=== PATIENT | male | born 1950 | race Two or more races ===

== ENCOUNTER → 2022-09-19 | Outpatient (CLI) | payer MEDICARE, BC ==
--- NOTE | 2022-09-19 12:55 | XR ---
EXAMINATION TYPE: XR chest 2V DATE OF EXAM: 09/19/2022 COMPARISON: NONE HISTORY: Presurgical testing TECHNIQUE: Frontal and lateral views of the chest are obtained on 3 images. FINDINGS: There is no focal air space opacity, pleural effusion, or pneumothorax seen. The cardiac silhouette size is within normal limits. There is eventration of right hemidiaphragm which is elevate d. Surgical clips are present right upper quadrant. The osseous structures are intact. IMPRESSION: No acute cardiopulmonary process.
[2022-09-19 16:02] LABS: Basophils # (A) 0.09 X 10*3/uL (0.00-0.10); Basophils % (A) 1.4 %; Eosinophils # (A) 0.22 X 10*3/uL (0.04-0.35); Eosinophils % (A) 3.5 %; HCT 45.7 % (39.6-50.0); HGB 14.9 g/dL (13.0-17.0); Immature Grans, Automated 0.3 %; Lymphocytes # (A) 1.53 X 10*3/uL (0.90-5.00); Lymphocytes % (A) 24.6 %; MCH 29.5 pg (27.0-32.0); MCHC 32.6 g/dL (32.0-37.0); MCV 90.5 fL (80.0-97.0); Mean Platelet Volume 9.9 fL (9.5-12.2); Monocytes # (A) 0.47 X 10*3/uL (0.20-1.00); Monocytes % (A) 7.6 %; NRBC Per 100 WBC 0 /100 WBCS (0.0-0.0); Neutrophils # (A) 3.89 X 10*3/uL (1.80-7.70); Neutrophils % (A) 62.6 %; Platelet Count 217 X 10*3/uL (140-440); RBC 5.05 X 10*6/uL (4.40-5.60); WBC 6.22 X 10*3/uL (4.50-10.00)
[2022-09-19 16:17] LABS: African American GFR (CKD) 83.5 (60.0-200.0); Anion Gap 11.5 mmol/L (10.00-18.00); BUN/Creat Ratio 15.1 Ratio (12.00-20.00); Blood Urea Nitrogen 15.4 mg/dL (9.0-27.0); Calcium 9.3 mg/dL (8.7-10.3); Carbon Dioxide 25.1 mmol/L (20.0-27.5); Non-African American GFR(CKD) 72.1 (60.0-200.0); Potassium 4.2 mmol/L (3.5-5.5)
[2022-09-19 18:49] LABS: Appearance,Urine Clear (Clear); Bilirubin,Urine Negative (Negative); Blood,Urine Negative (Negative); Color,Urine Yellow (Yellow); Ketones,Urine Negative (Negative); Nitrite,Urine Negative (Negative); Specific Gravity,Urine 1.021 (1.001-1.030)
[2022-09-19 19:15] LABS: Bacteria,Urine None Seen /HPF (None Seen)
== END | disposition home or self-care (01) ==
LOC: LABPAT 10:27
PROVIDERS: ATTEND Urology
DX: Z01.812 Encounter for preprocedural laboratory examination (principal); I10 Essential (primary) hypertension; D41.02 Neoplasm of uncertain behavior of left kidney; R31.29 Other microscopic hematuria
CPT/HCPCS: 71046; 80048; 81001; 85025; 87086

== ENCOUNTER 2022-09-27 05:39 | Inpatient (IN) | payer MEDICARE, BC ==
[2022-09-24 10:22] VITALS: BMI 29.8
--- NOTE | 2022-09-26 19:57 | P.HPIHPCON ---
History of Present Illness H&P Date: 09/26/22 Chief Complaint: right sided renal mass This is a 72-year-old male with history of a right-sided renal mass, discussed with him the finding and his this is highly concerning for renal cell carcinoma. discussed option of a radical versus a partial nephrectomy. Discussed the risk and the benefit of each procedure in detail. They agreed to proceed with a robotic right sided partial nephrectomy. Discussed the risk which includes but not limited to bleeding, infection, injury to nearby organs which includes but not limited to liver, bowel, lung. Discussed also risk from anesthesia with him. Discussed the risk of heart attack, stroke, blood clots. Also potential of end-stage renal disease and potential need for hemodialysis. Discussed also potential of converting to radical nephrectomy. He understood all the risk and agreed to proceed Consent for Procedure: I have explained the operation/procedure to the patient, including the risks, benefits, side effects, alternative therapies (including not receiving the proposed treatment or service), the likelihood of the patient achieving his/her goals, and potential recuperation problems for the procedure/sedation/analgesia, as well as any blood products, if indicated. I also explained to the patient the risks, benefits and side effects of the alternatives, as well as the risks related to not receiving the proposed procedure, care, treatment, or services. Past Medical History Past Medical History: Chest Pain / Angina, Diabetes Mellitus, GERD/Reflux, Hyperlipidemia, Hypertension, Prostate Disorder Additional Past Medical History / Comment(s): mass rt kidney,enlarged prostate,hiatal hernia,gastritis,diet control diabetes History of Any Multi-Drug Resistant Organisms: None Reported Past Surgical History: Cholecystectomy, Heart Catheterization With Stent, Hernia Repair Additional Past Surgical History / Comment(s): egd,kidney stones,umbilical hernia repair,iris inguinal hernia repairs Past Anesthesia/Blood Transfusion Reactions: No Reported Reaction Additional Past Anesthesia/Blood Transfusion Reaction / Comment(s): no hx blood transfusion Date of Last Stent Placement:: 2013 Smoking Status: Never smoker - Past Family History Mother Family Medical History: No Reported History Brother(s) Family Medical History: Cancer Additional Family Medical History / Comment(s): mets Medications and Allergies Home Medications Medication Instructions Recorded Confirmed Type Aspirin 81 mg PO DAILY 09/24/22 09/24/22 History Enalapril [Vasotec] 20 mg PO BID 09/24/22 09/24/22 History Niacin 500 mg PO DAILY 09/24/22 09/24/22 History Omeprazole 20 mg PO QAM 09/24/22 09/24/22 History Simvastatin 40 mg PO HS 09/24/22 09/24/22 History Tamsulosin HCl [Flomax] 0.4 mg PO QAM 09/24/22 09/24/22 History Ubidecarenone [Co Q-10] 100 mg PO DAILY 09/24/22 09/24/22 History Vit C/E/Zn/Coppr/Lutein/Zeaxan 1 tab PO DAILY 09/24/22 09/24/22 History [Preservision Areds 2 Chew Tab] amLODIPine [Norvasc] 10 mg PO QAM 09/24/22 09/24/22 History Allergies Allergy/AdvReac Type Severity Reaction Status Date / Time adhesive tape Allergy skin Verified 09/24/22 10:23 irritation and reddened gabapentin AdvReac "had Verified 09/24/22 10:01 ambulance called after feeling very sick" Surgical - Exam - General no distress, no pain - Eyes normal ocular movement, no pale - Abdomen Abdomen: soft, non tender Assessment and Plan Assessment: OR for right sided partial nephrectomy
[2022-09-27] MEDS ORDERED: ONDANSETRON 4 MG/2 ML VIAL IVP ONE (05:49)
[2022-09-27] MEDS ORDERED: DEXAMETHASONE SOD PHOSPHATE 4 MG/ML 1 ML VIAL IV ONE (05:49)
[2022-09-27] MEDS: LACTATED RINGERS 1,000 ML IV SCH (06:55)
[2022-09-27 06:58] LABS: Glucose,Whole Blood 137 mg/dL (70-110)
[2022-09-27] MEDS ORDERED: HYDROmorphone 0.5 MG/0.5 ML SYRINGE IVP PRN (07:00)
[2022-09-27] MEDS ORDERED: MIDAZOLAM 2 MG/2 ML VIAL IVP ONE (07:24)
[2022-09-27] MEDS ORDERED: ROPIVACAINE 5 MG/ML 30 ML VIAL ONE (07:36)
[2022-09-27] MEDS ORDERED: HYDROmorphone (PF) 1 MG/ML ONE (07:36)
[2022-09-27] MEDS ORDERED: GLYCOPYRROLATE 0.2 MG/ML 2 ML VIAL ONE (07:36)
[2022-09-27] MEDS ORDERED: fentaNYL (PF) 50 MCG/ML 2 ML AMP ONE (07:36)
[2022-09-27] MEDS ORDERED: MANNITOL 25% 12.5 GM/50 ML VIAL ONE (07:36)
[2022-09-27] MEDS ORDERED: ePHEDrine 50 MG/ML 1 ML VIAL ONE (07:36)
[2022-09-27] MEDS ORDERED: LIDOCAINE 2% INJ 20 MG/ML (2 ML VIAL) ONE (07:36)
[2022-09-27] MEDS ORDERED: ROCURONIUM 10 MG/ML (5 ML VIAL) IV ONE (07:36)
[2022-09-27] MEDS ORDERED: SUCCINYLCHOLINE CHLORIDE 200 MG/10 ML VIAL IV ONE (07:36)
[2022-09-27] MEDS ORDERED: SODIUM CHLORIDE 0.9% (PF) 10 ML VIAL ONE (07:36)
[2022-09-27] MEDS ORDERED: ALBUMIN HUMAN 5% (25gm) 500 ML VIAL IVPB ONE (07:36)
[2022-09-27] MEDS ORDERED: PROPOFOL 10 MG/ML 20 ML VIAL IV ONE (07:36)
[2022-09-27] MEDS ORDERED: ESMOLOL 100 MG/10 ML VIAL ONE (07:36)
[2022-09-27] MEDS ORDERED: WATER FOR INJECTION, STERILE 10 ML VIAL IV ONE ×2 (07:36)
[2022-09-27] MEDS ORDERED: VASOPRESSIN 20 UNIT/ML 1 ML VIAL ONE (07:36)
[2022-09-27] MEDS ORDERED: PHENYLEPHRINE-0.9% NACL SYG 1,000 MCG/10 ML SYRINGE ONE (07:36)
[2022-09-27] MEDS ORDERED: BUPIVACAINE (PF) 0.25% 30 ML VIAL SQ ONE ×2 (07:41)
[2022-09-27] MEDS ORDERED: LACTATED RINGERS 1,000 ML IV ONE ×2 (08:10)
--- NOTE | 2022-09-27 09:12 | P.ANPRN ---
Procedure Note - Anesthesia - Nerve Block Performed Bilateral Erector Spinae Single Time Out Performed: Yes Date of Procedure: 09/27/22 Procedure Start Time: 07:23 Location of Patient: PreOp Indication: Acute Post-Operative Pain, Dx/Pain Location (abodminal pain), Requested by Surgeon Specifically requested for management of pain by : Henry Alegria Sedation Type: Sedate with meaningful contact maintained Preparation: Sterile Prep Position: Prone Catheter: None Needle Types: Pajunk Needle Gauge: 21 Ultrasound used to visualize needle placement: Yes Ultrasound used to observe medication spread: Yes Injectate: 0.5% Ropivacaine (see comment for volume) (20cc + 10 cc saline on each side) Blood Aspirated: No Pain Paresthesia on Injection Noted: No Resistance on Injection: Normal Image Stored and Saved: Yes Events: Uneventful and Well Tolerated
--- NOTE | 2022-09-27 11:21 | P.OP ---
Date of Procedure: 09/27/22 Preoperative Diagnosis: Right-sided renal mass Postoperative Diagnosis: Same Procedure(s) Performed: Robotic-assisted laparoscopic right-sided partial nephrectomy, intraoperative ultrasound Implants: none Anesthesia: UZIEL Surgeon: Henry Alegria Pomologist #1: Namita Smyth Estimated Blood Loss (ml): 150 Pathology: other (right renal mass) Condition: stable Disposition: PACU Indications for Procedure: This is a 72-year-old male with history of a 4.1 cm right-sided renal mass, discussed with him the finding and his this is highly concerning for renal cell carcinoma. discussed option of a radical versus a partial nephrectomy. Discussed the risk and the benefit of each procedure in detail. They agreed to proceed with a robotic right sided partial nephrectomy. Discussed the risk which includes but not limited to bleeding, infection, injury to nearby organs which includes but not limited to liver, bowel, lung. Discussed also risk from anesthesia with him. Discussed the risk of heart attack, stroke, blood clots. Also potential of end-stage renal disease and potential need for hemodialysis. Discussed also potential of converting to radical nephrectomy. He understood all the risk and agreed to proceed Operative Findings: Completely endophytic right-sided renal mass Description of Procedure: The patient was taken to the operating room . General anesthesia was induced. He was prepped and draped in sterile fashion, and was placed in modified flank position . All pressure points were padded. The abdominal insufflation was achieved with the Veress needle. A 8 mm camera port was placed. Robotic trocars and bricklayer's assistant ports were placed under direct vision. a 5 mm liver retractor was placed. . The robot was docked into place. The colon was mobilized medially by incising along the white line of Toldt. Next the duodenum was kocherized. Once the bowel, was mobilized. At this time the gonadal vessel was visualized. Once the gonadal vessel and ureter was visualized , next after the psoas plane was developed the ureter and gonadal vessel was retracted anteriorly off the psoas muscle. Dissection proceeded cranially towards the renal hilum.The renal vessels were dissected. The renal artery and the vein was dissected in preparation for clamping. Patient had 2 renal arteries, and 2 renal veins. Next attention was carried to the tumor, the area around the tumor was defatted, insuring adequate defatting to identify a normal parenchyma. Given the posterior location of the tumor, complete mobilization of the kidney was performed. Next using the intraoperative ultrasound the tumor edges were defined. Manitol was administered. both renal artery were clamped using 2 bulldogs. After clamping the renal artery the tumor was excised with adequate margin, and cautery was used in areas of bleeding. Next the defect was closed in 2 layers using two 30V lock for the inner layer, five 20V lock in interrupted fashion for the outer layer. Sliding clip technique was used. Next the clamps were removed, there was no evidence of bleeding from the defect. Hemostatic agents were applied The kidney tumor was placed in an Endo Catch bag. A LALA drain was placed through the lower robotic trocor incision. The robot was then de-docked and the specimen was then removed by extending the bricklayer's assistant port. Fascia was closed with figure of eight fashion using #1 PDS. Skin was closed with subcuticular sutures and dermabond. The patient was awoken from general anesthesia in stable condition. all counts were correct Please refer to the final pathology report for final diagnosis
--- NOTE | 2022-09-27 12:28 | XR ---
EXAMINATION TYPE: XR chest 1V DATE OF EXAM: 09/27/2022 COMPARISON: 09/19/2022 HISTORY: 72-year-old male reintubation TECHNIQUE: Single frontal view of the chest is obtained. FINDINGS: ET tube satisfactory. Bilateral subcutaneous emphysema is noted. Cholecystectomy clips. Th ere may be some underlying pneumomediastinum as well. Heart upper limits of normal in size. No heydi consolidation or pleural effusion seen. No pneumothorax. IMPRESSION: Satisfactory ET tube. Bilateral subcutaneous emphysema. Probably some underlying pneumomediastinum as well. No pneumothorax. Otherwise, no acute process seen.
[2022-09-27] MEDS: KETOROLAC 15 MG/ML 1 ML VIAL IVP SCH ×3 (15:19→23:34)
[2022-09-27 16:58] LABS: Glucose,Whole Blood 204 mg/dL (70-110)
[2022-09-27] MEDS: HEPARIN SODIUM,PORCINE/PF 5,000 UNIT/0.5 ML SYRINGE SQ SCH ×2 (17:11→23:34)
[2022-09-27 20:11] LABS: Glucose,Whole Blood 220 mg/dL (70-110)
[2022-09-27] MEDS: HYDROcodone/APAP 5-325MG 1 EACH TAB PO PRN (21:24)
[2022-09-27] MEDS: lisinopriL 20 MG TAB PO SCH (21:45)
[2022-09-27] MEDS: D5-0.45% NACL WITH KCL 20MEQ/L 1,000 ML IV SCH (21:47)
[2022-09-27] MEDS: ATORVASTATIN 20 MG TAB PO SCH (21:47)
[2022-09-27] MEDS: HYDROmorphone 1 MG/ML 1 ML SYRINGE IVP PRN (23:35)
[2022-09-28] MEDS: HYDROcodone/APAP 5-325MG 1 EACH TAB PO PRN ×3 (05:46→22:10)
[2022-09-28] MEDS: KETOROLAC 15 MG/ML 1 ML VIAL IVP SCH ×4 (05:47→23:41)
[2022-09-28] MEDS: LACTATED RINGERS 1,000 ML IV SCH (05:52)
[2022-09-28] MEDS: D5-0.45% NACL WITH KCL 20MEQ/L 1,000 ML IV SCH ×3 (05:52→23:37)
[2022-09-28 06:12] LABS: Glucose,Whole Blood 141 mg/dL (70-110)
[2022-09-28] MEDS: amLODIPine 10 MG TAB PO SCH (08:27)
[2022-09-28] MEDS: HEPARIN SODIUM,PORCINE/PF 5,000 UNIT/0.5 ML SYRINGE SQ SCH ×3 (08:27→23:41)
[2022-09-28] MEDS: PANTOPRAZOLE 40 MG TABLET PO SCH (08:27)
[2022-09-28] MEDS: NIACIN TR 500 MG CAPLET PO SCH (08:27)
[2022-09-28] MEDS: TAMSULOSIN 0.4 MG CAP.ER.24H PO SCH (08:27)
[2022-09-28] MEDS: lisinopriL 20 MG TAB PO SCH ×2 (08:27→22:09)
[2022-09-28] MEDS: HYDROmorphone 1 MG/ML 1 ML SYRINGE IVP PRN (10:40)
[2022-09-28 11:01] LABS: Basophils # (A) 0.04 X 10*3/uL (0.00-0.10); Basophils % (A) 0.3 %; Eosinophils # (A) 0.03 X 10*3/uL (0.04-0.35); Eosinophils % (A) 0.2 %; HCT 36.8 % (39.6-50.0); HGB 12.6 g/dL (13.0-17.0); Immature Grans, Automated 0.5 %; Lymphocytes # (A) 0.98 X 10*3/uL (0.90-5.00); Lymphocytes % (A) 6.2 %; MCH 30.5 pg (27.0-32.0); MCHC 34.2 g/dL (32.0-37.0); MCV 89.1 fL (80.0-97.0); Mean Platelet Volume 9.7 fL (9.5-12.2); Monocytes # (A) 1.22 X 10*3/uL (0.20-1.00); Monocytes % (A) 7.8 %; NRBC Per 100 WBC 0 /100 WBCS (0.0-0.0); Neutrophils # (A) 13.38 X 10*3/uL (1.80-7.70); Platelet Count 200 X 10*3/uL (140-440); RBC 4.13 X 10*6/uL (4.40-5.60); RDW 12.7 % (11.5-14.5); WBC 15.73 X 10*3/uL (4.50-10.00)
[2022-09-28 11:10] LABS: Glucose,Whole Blood 163 mg/dL (70-110)
[2022-09-28 11:11] LABS: Anion Gap 12.1 mmol/L (10.00-18.00); BUN/Creat Ratio 10.78 Ratio (12.00-20.00); Calcium 8.2 mg/dL (8.7-10.3); Carbon Dioxide 23.2 mmol/L (20.0-27.5); Non-African American GFR(CKD) 39.7 (60.0-200.0); Potassium 4.2 mmol/L (3.5-5.5)
--- NOTE | 2022-09-28 12:31 | P.PN ---
Progress Note - Text Progress Note Date: 09/28/22 Postoperative day #1 status post right robotic partial nephrectomy. Having incisional pain, and right flank pain. Hemodynamically stable. Abdomen soft, tenderness along the incision. LALA with serosing output -Keep LALA in place -Ambulate -Green will be removed today -potential discharge for tomorrow
[2022-09-28 16:16] LABS: Glucose,Whole Blood 152 mg/dL (70-110)
[2022-09-28 20:58] LABS: Glucose,Whole Blood 179 mg/dL (70-110)
[2022-09-28] MEDS: ATORVASTATIN 20 MG TAB PO SCH (22:09)
[2022-09-29] MEDS: lisinopriL 20 MG TAB PO SCH ×2 (09:31→20:42)
[2022-09-29] MEDS: TAMSULOSIN 0.4 MG CAP.ER.24H PO SCH (09:31)
[2022-09-29] MEDS: PANTOPRAZOLE 40 MG TABLET PO SCH (09:31)
[2022-09-29] MEDS: LACTATED RINGERS 1,000 ML IV SCH (09:31)
[2022-09-29] MEDS: amLODIPine 10 MG TAB PO SCH (09:31)
[2022-09-29] MEDS: NIACIN TR 500 MG CAPLET PO SCH (09:31)
[2022-09-29] MEDS: KETOROLAC 15 MG/ML 1 ML VIAL IVP SCH ×3 (09:31→17:41)
[2022-09-29] MEDS: HEPARIN SODIUM,PORCINE/PF 5,000 UNIT/0.5 ML SYRINGE SQ SCH ×2 (09:31→16:50)
[2022-09-29] MEDS: D5-0.45% NACL WITH KCL 20MEQ/L 1,000 ML IV SCH ×2 (09:32→16:56)
--- NOTE | 2022-09-29 09:42 | P.PN ---
Subjective Progress Note Date: 09/29/22 the patient is in the hospital for a partial right nephrectomy. He is slowly recuperating. He is still having mild to moderate pain. vitall signs are stableJP drainage is serous. I will cut his IV fluids down and ambulate the patient. Hopefully he can be discharged in the next 24 hours. Objective - Vital Signs Vital signs: Vital Signs Temp 98.3 F 09/28/22 20:00 Pulse 90 09/28/22 20:00 Resp 12 09/28/22 20:00 BP 137/80 09/28/22 20:00 Pulse Ox 85 L 09/28/22 22:40 FiO2 100 09/27/22 13:28 Intake & Output 09/28/22 09/29/22 09/29/22 18:59 06:59 18:59 Intake Total 1500 Output Total 670 40 120 Balance 830 -40 -120 Intake: Intake, IV Titration 1500 Amount D5-0.45% NaCl with KCl 1500 20Meq/l 1,000 ml @ 125 mls/hr IV .Q8H [facility] Rx#: [id number] Output: Drainage 120 40 120 Right Abdomen 120 40 120 Urine 550 Other: Voiding Method Indwelling Catheter Indwelling Catheter Indwelling Catheter - Labs CBC & Chem 7: 09/28/22 06:32 09/28/22 06:32 Labs: Abnormal Lab Results - Last 24 Hours (Table) 09/28/22 09/28/22 09/28/22 Range/Units 06:32 06:32 11:09 WBC 15.73 H (4.50-10.00) X 10*3/uL RBC 4.13 L (4.40-5.60) X 10*6/uL Hgb 12.6 L (13.0-17.0) g/dL Hct 36.8 L (39.6-50.0) % Immature Gran # 0.08 H (0.00-0.04) X 10*3/uL Neutrophils # 13.38 H (1.80-7.70) X 10*3/uL Monocytes # 1.22 H (0.20-1.00) X 10*3/uL Eosinophils # 0.03 L (0.04-0.35) X 10*3/uL Creatinine 1.7 H (0.6-1.5) mg/dL Est GFR (CKD-EPI)AfAm 46.0 L (60.0-200.0) Est GFR (CKD-EPI)NonAf 39.7 L (60.0-200.0) BUN/Creatinine Ratio 10.78 L (12.00-20.00) Ratio Glucose 136 H (70-110) mg/dL POC Glucose (mg/dL) 163 H (70-110) mg/dL Calcium 8.2 L (8.7-10.3) mg/dL 09/28/22 09/28/22 Range/Units 16:15 20:57 WBC (4.50-10.00) X 10*3/uL RBC (4.40-5.60) X 10*6/uL Hgb (13.0-17.0) g/dL Hct (39.6-50.0) % Immature Gran # (0.00-0.04) X 10*3/uL Neutrophils # (1.80-7.70) X 10*3/uL Monocytes # (0.20-1.00) X 10*3/uL Eosinophils # (0.04-0.35) X 10*3/uL Creatinine (0.6-1.5) mg/dL Est GFR (CKD-EPI)AfAm (60.0-200.0) Est GFR (CKD-EPI)NonAf (60.0-200.0) BUN/Creatinine Ratio (12.00-20.00) Ratio Glucose (70-110) mg/dL POC Glucose (mg/dL) 152 H 179 H (70-110) mg/dL Calcium (8.7-10.3) mg/dL
[2022-09-29 11:37] LABS: Glucose,Whole Blood 155 mg/dL (70-110)
[2022-09-29 11:37] LABS: Glucose,Whole Blood 174 mg/dL (70-110)
[2022-09-29 16:34] LABS: Glucose,Whole Blood 173 mg/dL (70-110)
[2022-09-29] MEDS: HYDROcodone/APAP 5-325MG 1 EACH TAB PO PRN ×2 (16:50→20:41)
[2022-09-29 19:23] LABS: Glucose,Whole Blood 167 mg/dL (70-110)
[2022-09-29] MEDS: ATORVASTATIN 20 MG TAB PO SCH (20:42)
[2022-09-30] MEDS: KETOROLAC 15 MG/ML 1 ML VIAL IVP SCH ×5 (00:54→23:57)
[2022-09-30] MEDS: HEPARIN SODIUM,PORCINE/PF 5,000 UNIT/0.5 ML SYRINGE SQ SCH ×4 (00:55→23:57)
[2022-09-30] MEDS: HYDROcodone/APAP 5-325MG 1 EACH TAB PO PRN ×4 (00:59→21:36)
[2022-09-30 06:06] LABS: Glucose,Whole Blood 143 mg/dL (70-110)
[2022-09-30] MEDS: PANTOPRAZOLE 40 MG TABLET PO SCH (06:34)
[2022-09-30] MEDS: LACTATED RINGERS 1,000 ML IV SCH (07:37)
[2022-09-30] MEDS: lisinopriL 20 MG TAB PO SCH ×2 (08:58→21:37)
[2022-09-30] MEDS: TAMSULOSIN 0.4 MG CAP.ER.24H PO SCH (08:58)
[2022-09-30] MEDS: NIACIN TR 500 MG CAPLET PO SCH (08:59)
[2022-09-30] MEDS: amLODIPine 10 MG TAB PO SCH (08:59)
--- NOTE | 2022-09-30 09:59 | P.PN ---
Subjective Progress Note Date: 09/30/22 The patient is in the hospital status post right partial nephrectomy done robotically by . Recuperating. His vital signs are stable. He is started to ambulate. His pain is reasonable. He is now urinating. We discussed discharged today and he requests another 24 hours order to feel more confident ambulating eating and pain control. The patient's drain was removed this morning. Anticipate discharge tomorrow. Pathology report is pending. Objective - Vital Signs Vital signs: Vital Signs Temp 98.3 F 09/30/22 07:35 Pulse 92 09/30/22 07:35 Resp 16 09/30/22 07:35 BP 142/81 09/30/22 07:35 Pulse Ox 93 L 09/30/22 07:35 FiO2 100 09/27/22 13:28 Intake & Output 09/29/22 09/30/22 09/30/22 19:59 06:59 18:59 Intake Total Output Total 620 Balance -620 Intake: IV D5-0.45% NaCl with KCl 20Meq/l 1,000 ml @ 70 mls /hr IV .[id number] [facility] Rx#: [id number] Output: Drainage 20 Right Abdomen 20 Urine 600 Uretheral (Green) Other: Voiding Method Urinal # Voids - Labs CBC & Chem 7: 09/28/22 06:32 09/28/22 06:32 Labs: Abnormal Lab Results - Last 24 Hours (Table) 09/29/22 09/29/22 09/29/22 Range/Units 06:11 11:31 16:33 POC Glucose (mg/dL) 174 H 155 H 173 H (70-110) mg/dL 09/29/22 09/30/22 Range/Units 19:21 06:04 POC Glucose (mg/dL) 167 H 143 H (70-110) mg/dL
[2022-09-30 11:55] LABS: Glucose,Whole Blood 141 mg/dL (70-110)
[2022-09-30] MEDS: D5-0.45% NACL WITH KCL 20MEQ/L 1,000 ML IV SCH (12:50)
[2022-09-30 16:36] LABS: Glucose,Whole Blood 149 mg/dL (70-110)
[2022-09-30 19:49] LABS: Glucose,Whole Blood 180 mg/dL (70-110)
[2022-09-30] MEDS: ATORVASTATIN 20 MG TAB PO SCH (21:37)
[2022-10-01] MEDS: D5-0.45% NACL WITH KCL 20MEQ/L 1,000 ML IV SCH ×2 (00:48→06:23)
[2022-10-01 06:08] LABS: Glucose,Whole Blood 146 mg/dL (70-110)
[2022-10-01] MEDS: KETOROLAC 15 MG/ML 1 ML VIAL IVP SCH (06:20)
[2022-10-01] MEDS: HYDROcodone/APAP 5-325MG 1 EACH TAB PO PRN (06:20)
[2022-10-01] MEDS: PANTOPRAZOLE 40 MG TABLET PO SCH (06:21)
[2022-10-01] MEDS: LACTATED RINGERS 1,000 ML IV SCH (08:14)
[2022-10-01 08:20] VITALS: BP 123/73; PULSE 90; TEMP 98
[2022-10-01] MEDS: HEPARIN SODIUM,PORCINE/PF 5,000 UNIT/0.5 ML SYRINGE SQ SCH (09:23)
[2022-10-01] MEDS: lisinopriL 20 MG TAB PO SCH (09:23)
[2022-10-01] MEDS: TAMSULOSIN 0.4 MG CAP.ER.24H PO SCH (09:23)
[2022-10-01] MEDS: NIACIN TR 500 MG CAPLET PO SCH (09:23)
[2022-10-01] MEDS: amLODIPine 10 MG TAB PO SCH (09:23)
--- NOTE | 2022-10-01 09:27 | P.DS ---
Providers Date of admission: 09/28/22 07:08 Expected date of discharge: 10/01/22 Attending physician: Henry Alegria MD Primary care physician: Nikhil Chris - Discharge Diagnosis(es) (1) Status post nephrectomy Status: Acute Hospital Course: The patient is a 72-year-old male with history of a 4.1 cm right-sided renal mass that was highly concerning for renal cell carcinoma. He had a robotic- assisted laparoscopic right-sided partial nephrectomy with intraoperative ultrasound with Dr. Alegria on 09/27/22. Post operatively he experienced mild to moderate incisional and right flank pain. His Green catheter and LALA drain have since been removed. He has been tolerating a diet and ambulating. He is able to void without difficulty. His pain is now well controlled. He states he feels ready to go home. [place] and Toradol have been prescribed as needed for pain. Pathology report is pending. He is to follow up in the office with Dr. Alegria on Saturday10/05/22. Impression and plan of care have been directed as dictated by the signing physician. Verónica Castellanos nurse practitioner acting as scribe for signing physician. Verónica Castellanos [facility] Palliative Care/Urology Spectralink [phone] Email: [email or web address] I personally performed and participated in the history, physical, the decision making, I agree with the assessment and plan of SOLE BLACKER Patient Condition at Discharge: Good Plan - Discharge Summary Discharge Rx Participant: No New Discharge Prescriptions: New Ketorolac [Toradol] 10 mg PO Q6HR PRN #12 tab PRN Reason: Pain HYDROcodone/APAP 5-325MG [[place] 5-325] 1 tab PO Q6HR PRN 3 Days #12 tab PRN Reason: Pain Continue Niacin 500 mg PO DAILY Vit C/E/Zn/Coppr/Lutein/Zeaxan [Preservision Areds 2 Chew Tab] 1 tab PO DAILY Ubidecarenone [Co Q-10] 100 mg PO DAILY Aspirin 81 mg PO DAILY Tamsulosin HCl [Flomax] 0.4 mg PO QAM Simvastatin 40 mg PO HS Omeprazole 20 mg PO QAM amLODIPine [Norvasc] 10 mg PO QAM Enalapril [Vasotec] 20 mg PO BID Discharge Medication List Aspirin 81 mg PO DAILY 09/24/22 [History] Enalapril [Vasotec] 20 mg PO BID 09/24/22 [History] Niacin 500 mg PO DAILY 09/24/22 [History] Omeprazole 20 mg PO QAM 09/24/22 [History] Simvastatin 40 mg PO HS 09/24/22 [History] Tamsulosin HCl [Flomax] 0.4 mg PO QAM 09/24/22 [History] Ubidecarenone [Co Q-10] 100 mg PO DAILY 09/24/22 [History] Vit C/E/Zn/Coppr/Lutein/Zeaxan [Preservision Areds 2 Chew Tab] 1 tab PO DAILY 09/24/22 [History] amLODIPine [Norvasc] 10 mg PO QAM 09/24/22 [History] HYDROcodone/APAP 5-325MG [[place] 5-325] 1 tab PO Q6HR PRN 3 Days #12 tab 10/01/22 [Rx] Ketorolac [Toradol] 10 mg PO Q6HR PRN #12 tab 10/01/22 [Rx] Follow up Appointment(s)/Referral(s): Henry Alegria MD [STAFF PHYSICIAN] - 10/05/22 9:40 am Patient Instructions/Handouts: Hydrocodone/Acetaminophen (By mouth), Ketorolac (By mouth), Nephrectomy (DC) Activity/Diet/Wound Care/Special Instructions: - No heavy lifting, straining, or strenuous activity for 4-6 weeks - Eat small frequent meals - Take pain medication as prescribed when needed - May shower, no tub baths - Follow up with Dr. Alegria in office on Saturday10/05/22 Discharge Disposition: HOME SELF-CARE
[2022-10-01 10:24] VITALS: RESP 16
== END 2022-10-01 11:25 | disposition home or self-care (01) | DRG 658 ==
LOC: OR 05:39 → EDSTATUS 07:30 → 5NMEDONC 11:28 → 4SSUR 11:28 → OR 11:28 → 4SSUR 09-28 07:08 → OR 09-28 07:08 → 4SSUR 10-01 04:59
PROVIDERS: ADMIT Urology; ATTEND Urology
PROC: 0TB04ZZ Excision of Right Kidney, Percutaneous Endoscopic Approach (ICD-10-PCS; principal; 2022-09-28)
PROC: 8E0W4CZ Robotic Assisted Procedure of Trunk Region, Percutaneous Endoscopic Approach (ICD-10-PCS; 2022-09-28)
DX: C64.1 Malignant neoplasm of right kidney, except renal pelvis (principal); E11.9 Type 2 diabetes mellitus without complications; I10 Essential (primary) hypertension; E78.5 Hyperlipidemia, unspecified; Z79.899 Other long term (current) drug therapy; Z79.82 Long term (current) use of aspirin; Z91.048 Other nonmedicinal substance allergy status; Z88.8 Allergy status to other drugs, medicaments and biological substances
CPT/HCPCS: 36600; 64999; 71045; 80048; 85025; 86850; 86900; 86901; 88307; 88341; 88342; 94002

== ENCOUNTER 2022-10-08 18:36 | Emergency (ER) | payer MEDICARE, BC ==
[2022-10-08 18:44] VITALS: TEMP 98.6
[2022-10-08] MEDS ORDERED: SODIUM CHLORIDE 0.9% 500 ML 500 ML IV STA (19:17)
--- NOTE | 2022-10-08 19:39 | ED ---
General Adult HPI - General Chief complaint: Recheck/Abnormal Lab/Rx Stated complaint: kidney problems Time Seen by Provider: 10/08/22 19:13 Source: patient, family Mode of arrival: ambulatory Limitations: no limitations - History of Present Illness Initial comments: Patient is a 72-year-old male who had a mass removed from his right kidney on 09/27 highly concerning for renal cell carcinoma by Dr. Alegria, patient was seen by his PCP today, blood work obtained at today's visit indicated that he had elevated BUN and creatinine as well as potassium, his PCP advised him to report to the ER. Patient states that he has been experiencing some fatigue and "zoning out" over the recent days, which he attributes to recent surgery and recovery. Patient admits to some postoperative pain that has been gradually decreasing, otherwise no new abdominal pain, chest pain, difficulty breathing, headache, vision or hearing changes, neck pain or stiffness, fever, chills, nausea, vomiting, diarrhea, hematochezia, melena. - Related Data Home Medications Medication Instructions Recorded Confirmed Aspirin 81 mg PO DAILY 09/24/22 09/27/22 Enalapril [Vasotec] 20 mg PO BID 09/24/22 09/27/22 Niacin 500 mg PO DAILY 09/24/22 09/27/22 Omeprazole 20 mg PO QAM 09/24/22 09/27/22 Simvastatin 40 mg PO HS 09/24/22 09/27/22 Tamsulosin HCl [Flomax] 0.4 mg PO QAM 09/24/22 09/27/22 Ubidecarenone [Co Q-10] 100 mg PO DAILY 09/24/22 09/27/22 Vit C/E/Zn/Coppr/Lutein/Zeaxan 1 tab PO DAILY 09/24/22 09/27/22 [Preservision Areds 2 Chew Tab] amLODIPine [Norvasc] 10 mg PO QAM 09/24/22 09/27/22 Previous Rx's Medication Instructions Recorded HYDROcodone/APAP 5-325MG [[place] 1 tab PO Q6HR PRN 3 Days #12 tab 10/01/22 5-325] Ketorolac [Toradol] 10 mg PO Q6HR PRN #12 tab 10/01/22 Allergies Allergy/AdvReac Type Severity Reaction Status Date / Time adhesive tape Allergy skin Verified 09/27/22 06:35 irritation and reddened gabapentin AdvReac "had Verified 09/27/22 06:35 ambulance called after feeling very sick" Review of Systems ROS Statement: Those systems with pertinent positive or pertinent negative responses have been documented in the HPI. ROS Other: All systems not noted in ROS Statement are negative. Past Medical History Past Medical History: Cancer, Chest Pain / Angina, Diabetes Mellitus, GERD/Reflux, Hyperlipidemia, Hypertension, Prostate Disorder Additional Past Medical History / Comment(s): mass rt kidney,enlarged prostate,hiatal hernia,gastritis,diet control diabetes History of Any Multi-Drug Resistant Organisms: None Reported Past Surgical History: Cholecystectomy, Heart Catheterization With Stent, Hernia Repair Additional Past Surgical History / Comment(s): egd,kidney stones,umbilical hernia repair,iris inguinal hernia repairs right kidney tumor removed Past Anesthesia/Blood Transfusion Reactions: No Reported Reaction Additional Past Anesthesia/Blood Transfusion Reaction / Comment(s): no hx blood transfusion Date of Last Stent Placement:: 2013 Past Psychological History: No Psychological Hx Reported Smoking Status: Never smoker Past Alcohol Use History: Rare Past Drug Use History: None Reported - Past Family History Mother Family Medical History: No Reported History Brother(s) Family Medical History: Cancer Additional Family Medical History / Comment(s): mets General Exam Limitations: no limitations General appearance: alert, in no apparent distress Head exam: Present: atraumatic, normocephalic, normal inspection Eye exam: Present: normal appearance Neck exam: Present: normal inspection Respiratory exam: Present: normal lung sounds bilaterally. Absent: respiratory distress, wheezes, rales, rhonchi, stridor Cardiovascular Exam: Present: regular rate, normal rhythm, normal heart sounds. Absent: systolic murmur, diastolic murmur, rubs, gallop, clicks Neurological exam: Present: alert, oriented X3, CN II-XII intact Psychiatric exam: Present: normal affect, normal mood Skin exam: Present: warm, dry, intact, normal color. Absent: rash Course Vital Signs 10/08/22 10/08/22 18:40 20:44 Temperature 98.6 F Pulse Rate 104 H 86 Respiratory 20 16 Rate Blood Pressure 128/75 145/55 O2 Sat by Pulse 96 Oximetry EKG Findings - EKG Comments: EKG Findings:: Sinus rhythm rate of 87. ME interval 136. QRS 97. QT 360. QTC 404. Normal axis. Inverted T waves in lead 3. EKG interpreted by me as well as my attending. Medical Decision Making - Medical Decision Making Patient is a 72-year-old male presenting for evaluation of abnormal labs obtained by his PCP today. Patient is status post partial right-sided nephrectomy performed on 09/27. Patient's PCP informed him that he had an elevated potassium and BUN and creatinine in the office today and advised him to report to the ER for evaluation. I presentation patient states that he is still sore from his surgery, otherwise no other complaints. Physical examination is unremarkable. Creatinine 1.98 and BUN 24, this is mildly elevated from his baseline. I spoke with urologist continuous improvement specialist Dr. Patterson he states that this rise in BUN and creatinine is to be expected as patient had a very large portion of the kidney removed. He is comfortable with the patient following up in the office regarding these findings. Patient's lab work showed no signs of hyperkalemia today. UA shows some blood, due to recent surgery, no evidence of infectious process, will be sent for culture. Patient was educated on these findings and instructed to follow-up with his urologist. Follow-up with PCP. Report back to ER with any new or worsening symptoms. Discussed return parameters and answered all questions. Patient conveyed verbal understanding and agreed to the plan. I discussed this case in detail with my attending Dr. Parra. - Lab Data Result diagrams: 10/08/22 19:40 10/08/22 19:40 Lab Results 10/08/22 10/08/22 10/08/22 Range/Units 19:40 19:40 19:40 WBC 12.8 H (3.8-10.6) k/uL RBC 4.41 (4.30-5.90) m/uL Hgb 13.4 (13.0-17.5) gm/dL Hct 39.5 (39.0-53.0) % MCV 89.6 (80.0-100.0) fL MCH 30.3 (25.0-35.0) pg MCHC 33.8 (31.0-37.0) g/dL RDW 12.2 (11.5-15.5) % Plt Count 419 (150-450) k/uL MPV 7.3 Neutrophils % 77 % Lymphocytes % 10 % Monocytes % 4 % Eosinophils % 7 % Basophils % 1 % Neutrophils # 9.9 H (1.3-7.7) k/uL Lymphocytes # 1.2 (1.0-4.8) k/uL Monocytes # 0.5 (0-1.0) k/uL Eosinophils # 1.0 H (0-0.7) k/uL Basophils # 0.1 (0-0.2) k/uL PT (9.0-12.0) sec INR (<1.2) Sodium 139 (137-145) mmol/L Potassium 4.4 (3.5-5.1) mmol/L Chloride 103 (98-107) mmol/L Carbon Dioxide 28 (22-30) mmol/L Anion Gap 8 mmol/L BUN 24 H (9-20) mg/dL Creatinine 1.98 H (0.66-1.25) mg/dL Est GFR (CKD-EPI)AfAm 37 (>60 ml/min/1.73 sqM) Est GFR (CKD-EPI)NonAf 32 (>60 ml/min/1.73 sqM) Glucose 140 H (74-99) mg/dL Plasma Lactic Acid Ynf 1.0 (0.7-2.0) mmol/L Calcium 8.8 (8.4-10.2) mg/dL Total Bilirubin 0.5 (0.2-1.3) mg/dL AST 25 (17-59) U/L ALT 39 (4-49) U/L Alkaline Phosphatase 104 (38-126) U/L Total Protein 6.7 (6.3-8.2) g/dL Albumin 4.0 (3.5-5.0) g/dL Urine Color Urine Appearance (Clear) Urine pH (5.0-8.0) Ur Specific [place] (1.001-1.035) Urine Protein (Negative) Urine Glucose (UA) (Negative) Urine Ketones (Negative) Urine Blood (Negative) Urine Nitrite (Negative) Urine Bilirubin (Negative) Urine Urobilinogen (<2.0) mg/dL Ur Leukocyte Esterase (Negative) Urine RBC (0-5) /hpf Urine WBC (0-5) /hpf Ur Squamous Epith Cells (0-4) /hpf Urine Bacteria (None) /hpf Urine Mucus (None) /hpf 10/08/22 10/08/22 Range/Units 21:05 21:55 WBC (3.8-10.6) k/uL RBC (4.30-5.90) m/uL Hgb (13.0-17.5) gm/dL Hct (39.0-53.0) % MCV (80.0-100.0) fL MCH (25.0-35.0) pg MCHC (31.0-37.0) g/dL RDW (11.5-15.5) % Plt Count (150-450) k/uL MPV Neutrophils % % Lymphocytes % % Monocytes % % Eosinophils % % Basophils % % Neutrophils # (1.3-7.7) k/uL Lymphocytes # (1.0-4.8) k/uL Monocytes # (0-1.0) k/uL Eosinophils # (0-0.7) k/uL Basophils # (0-0.2) k/uL PT 11.0 (9.0-12.0) sec INR 1.0 (<1.2) Sodium (137-145) mmol/L Potassium (3.5-5.1) mmol/L Chloride (98-107) mmol/L Carbon Dioxide (22-30) mmol/L Anion Gap mmol/L BUN (9-20) mg/dL Creatinine (0.66-1.25) mg/dL Est GFR (CKD-EPI)AfAm (>60 ml/min/1.73 sqM) Est GFR (CKD-EPI)NonAf (>60 ml/min/1.73 sqM) Glucose (74-99) mg/dL Plasma Lactic Acid Yfn (0.7-2.0) mmol/L Calcium (8.4-10.2) mg/dL Total Bilirubin (0.2-1.3) mg/dL AST (17-59) U/L ALT (4-49) U/L Alkaline Phosphatase (38-126) U/L Total Protein (6.3-8.2) g/dL Albumin (3.5-5.0) g/dL Urine Color Yellow Urine Appearance Clear (Clear) Urine pH 6.0 (5.0-8.0) Ur Specific [place] 1.020 (1.001-1.035) Urine Protein Trace H (Negative) Urine Glucose (UA) Negative (Negative) Urine Ketones Negative (Negative) Urine Blood Moderate H (Negative) Urine Nitrite Negative (Negative) Urine Bilirubin Negative (Negative) Urine Urobilinogen 2.0 (<2.0) mg/dL Ur Leukocyte Esterase Trace H (Negative) Urine RBC 40 H (0-5) /hpf Urine WBC 7 H (0-5) /hpf Ur Squamous Epith Cells <1 (0-4) /hpf Urine Bacteria Rare H (None) /hpf Urine Mucus Rare H (None) /hpf Disposition Clinical Impression: Elevated BUN, Elevated serum creatinine, Status post nephrectomy Disposition: HOME SELF-CARE Condition: Good Instructions (If sedation given, give patient instructions): Laparoscopic Partial Nephrectomy (DC) Additional Instructions: Follow-up with PCP and urology. Report back to ER with any new or worsening symptoms. Is patient prescribed a controlled substance at d/c from ED?: No Referrals: Nikhil Chris MD [Primary Care Provider] - 1-2 days Henry Alegria MD [STAFF PHYSICIAN] - 1-2 days Time of Disposition: 21:59
[2022-10-08 19:56] LABS: Basophils # (A) 0.1 k/uL (0-0.2); Basophils % (A) 1 %; Eosinophils % (A) 7 %; HCT 39.5 % (39.0-53.0); HGB 13.4 gm/dL (13.0-17.5); Lymphocytes # (A) 1.2 k/uL (1.0-4.8); Lymphocytes % (A) 10 %; MCH 30.3 pg (25.0-35.0); MCHC 33.8 g/dL (31.0-37.0); MCV 89.6 fL (80.0-100.0); Mean Platelet Volume 7.3; Monocytes # (A) 0.5 k/uL (0-1.0); Monocytes % (A) 4 %; Neutrophils # (A) 9.9 k/uL (1.3-7.7); Neutrophils % (A) 77 %; Platelet Count 419 k/uL (150-450); RBC 4.41 m/uL (4.30-5.90); RDW 12.2 % (11.5-15.5); WBC 12.8 k/uL (3.8-10.6)
[2022-10-08 20:07] LABS: Calcium 8.8 mg/dL (8.4-10.2); Potassium 4.4 mmol/L (3.5-5.1); Total Bilirubin 0.5 mg/dL (0.2-1.3); Total Protein 6.7 g/dL (6.3-8.2)
[2022-10-08 20:45] VITALS: BP 145/55; PULSE 86; RESP 16
[2022-10-08 21:44] LABS: Appearance,Urine Clear (Clear); Bacteria,Urine Rare /hpf; Bilirubin,Urine Negative (Negative); Blood,Urine Moderate (Negative); Color,Urine Yellow; Glucose,Urine (UA) Negative (Negative); Ketones,Urine Negative (Negative); Leukocyte Esterase,Urine Trace (Negative); Mucus,Urine Rare /hpf; Nitrite,Urine Negative (Negative); Protein,Urine Trace (Negative); RBC,Urine 40 /hpf (0-5); Squamous Epithelial Cell,Urine <1 /hpf (0-4); WBC,Urine 7 /hpf (0-5)
== END 2022-10-08 22:34 | disposition home or self-care (01) ==
LOC: EC 18:36
DX: R94.4 Abnormal results of kidney function studies (principal); E11.9 Type 2 diabetes mellitus without complications; E78.5 Hyperlipidemia, unspecified; I10 Essential (primary) hypertension; K21.9 Gastro-esophageal reflux disease without esophagitis; Z90.49 Acquired absence of other specified parts of digestive tract; Z90.5 Acquired absence of kidney; Z88.8 Allergy status to other drugs, medicaments and biological substances; Z88.9 Allergy status to unspecified drugs, medicaments and biological substances; Z79.82 Long term (current) use of aspirin; Z79.83 Long term (current) use of bisphosphonates; Z79.899 Other long term (current) drug therapy
CPT/HCPCS: 36415; 80053; 81001; 83605; 85025; 85610; 93005; 99283

== ENCOUNTER → 2023-03-14 | Outpatient (CLI) | payer MEDICARE, BC ==
--- NOTE | 2023-03-14 13:52 | CT ---
EXAMINATION TYPE: CT abdomen wo/w con CT DLP: 1270.10 mGycm, Automated exposure control for dose reduction was used. DATE OF EXAM: 03/14/2023 1:16 PM COMPARISON: None. CLINICAL INDICATION:Male, 72 years old with history of C64.1; Renal Cancer-Right TECHNIQUE: Axial CT of the abdomen. Sagittal and coronal [facility] Contrast used:80 ml mL of Isovue 300 without and with IV Contrast, Oral contrast used: with Oral Contrast FINDINGS: LOWER CHEST: Unremarkable ABDOMEN LIVER: Unremarkable GALLBLADDER AND BILE DUCTS: Unremarkable. PANCREAS: Unremarkable. SPLEEN: Unremarkable. ADRENAL GLANDS: Unremarkable. KIDNEYS AND URETERS: Posttreatment changes to the right kidney with cortical scarring and thinning wi th suture in place. Fat stranding changes around the right kidney. Area of nonenhancement more inferi yanick within the renal cortex. No evidence of obstructive uropathy or hydronephrosis bilaterally. Left kidney is without suspicious mass. No renal calculi visualized nonobstructing 3 mm calculus. STOMACH AND BOWEL: No evidence of bowel obstruction. PERITONEUM/RETROPERITONEUM: No evidence of pneumoperitoneum or free fluid. VASCULATURE: No evidence of aortic aneurysm. Atherosclerosis of the arterial vasculature. MUSCULOSKELETAL: No acute osseous abnormalities LYMPH NODES: No gross evidence for lymphadenopathy. SOFT TISSUE/ABDOMINAL WALL: Unremarkable IMPRESSION: Postprocedural changes to the right kidney without definitive evidence for recurrence or lymphadenopa thy. Consider comparison with priors if available for stability. If this is the first postoperative C T examination attention on follow-up imaging for stability.
== END | disposition home or self-care (01) ==
LOC: RADCTMAIN 11:46
PROVIDERS: ATTEND Urology
DX: C64.1 Malignant neoplasm of right kidney, except renal pelvis (principal)
CPT/HCPCS: 74170; 36415; Q9967

== ENCOUNTER → 2023-03-14 | Outpatient (CLI) | payer MEDICARE, BC ==
--- NOTE | 2023-03-14 12:41 | XR ---
EXAMINATION TYPE: XR chest 2V DATE OF EXAM: 03/14/2023 COMPARISON: 09/27/2022 HISTORY: Renal cell carcinoma TECHNIQUE: Frontal and lateral views of the chest are obtained. FINDINGS: The heart size is normal. The cardiomediastinal silhouette is within normal limits. There is slight elevation of the right hemidiaphragm, which is similar in appearance when compared to previ ous examination. There is no focal consolidation, significant pleural effusion, or pneumothorax per t here is no obvious suspicious pulmonary nodule. IMPRESSION: No acute cardiopulmonary process.
== END | disposition home or self-care (01) ==
LOC: LABWHC1 11:20
PROVIDERS: ATTEND Urology
DX: C64.1 Malignant neoplasm of right kidney, except renal pelvis (principal)
CPT/HCPCS: 71046; 82565; 84520

== ENCOUNTER → 2023-09-09 | Outpatient (CLI) | payer MEDICARE, BC ==
--- NOTE | 2023-09-09 13:30 | XR ---
EXAMINATION TYPE: XR chest 2V DATE OF EXAM: 09/09/2023 COMPARISON: 03/14/2023 TECHNIQUE: PA and lateral views submitted. HISTORY: Renal carcinoma FINDINGS: The lungs are clear and there is no pneumothorax, pleural effusion, or focal pneumonia. Heart size normal and no overt failure. Osseous structures demonstrate hypertrophic and degenerative changes of the spine. Hypertrophic arthropathy of the AC joint. IMPRESSION: 1. No acute process.
[2023-09-09 13:43] LABS: African American GFR (CKD) 65 (>60 ml/min/1.73 sqM); Blood Urea Nitrogen 16 mg/dL (9-20); Non-African American GFR(CKD) 56 (>60 ml/min/1.73 sqM)
--- NOTE | 2023-09-09 19:11 | CT ---
EXAMINATION TYPE: CT abdomen wo/w con DATE OF EXAM: 09/09/2023 COMPARISON: 03/14/2023 INDICATION: f/u renal ca DLP: 1172.2 mGycm, Automated exposure control for dose reduction was used. CONTRAST: 80cc mL of Isovue 300. Study performed with Oral Contrast TECHNIQUE: Axial images were obtained from above the diaphragm to the pubic rami in the axial plane a t 5 mm thick sections. Reconstructed images are reviewed on the computer in the coronal plane. FINDINGS: Limited CT sections are obtained the lung bases. The lung bases are clear. CT ABDOMEN: Liver: Normal Spleen: Normal Pancreas: Normal Adrenal glands: The adrenal glands are normal. Gallbladder: Surgically absent Kidneys: No masses are evident. No hydronephrosis is present. No cysts are present. Delayed images were obtained through the kidneys, which remain unremarkable. Right kidney appears stable from harvinder rison. Aorta: Vascular calcification is within the aorta. Inferior vena cava: Normal. Loops of bowel within the abdomen and upper pelvis are normal. There are loops of bowel which are incompletely distended or lack oral contrast limiting their evaluation. Appendix: Normal as visualized. Osseous structures: No suspicious lytic or sclerotic lesions. IMPRESSION: 1. No suspicious changes to suggest recurrent or metastatic renal cell cancer. Right kidney appears stable from comparison.
== END | disposition home or self-care (01) ==
LOC: RADCTMAIN 12:49
PROVIDERS: ATTEND Urology
DX: C64.2 Malignant neoplasm of left kidney, except renal pelvis (principal)
CPT/HCPCS: 82565; 84520; 71046; 74170; 36415; Q9967

== ENCOUNTER → 2024-09-11 | Outpatient (CLI) | payer MEDICARE, BC ==
--- NOTE | 2024-09-11 14:15 | XR ---
EXAMINATION TYPE: XR chest 2V DATE OF EXAM: 09/11/2024 COMPARISON: 09/09/2023 TECHNIQUE: PA and lateral views submitted. HISTORY: Renal cancer FINDINGS: The lungs are clear and there is no pneumothorax, pleural effusion, or focal pneumonia. Heart size normal and no overt failure. Osseous structures intact. Surgical clip in the upper right abdomen. IMPRESSION: 1. No acute process. [facility], , 09/11/2024 2:13 PM
[2024-09-11 14:31] LABS: African American GFR (CKD) 53 (>60 ml/min/1.73 sqM); Blood Urea Nitrogen 21 mg/dL (9-20); Non-African American GFR(CKD) 46 (>60 ml/min/1.73 sqM)
--- NOTE | 2024-09-11 15:13 | CT ---
EXAMINATION TYPE: CT abdomen wo/w con CT DLP: 1365.4 mGycm, Automated exposure control for dose reduction was used. DATE OF EXAM: 09/11/2024 2:55 PM COMPARISON: CT abdomen 09/09/2023, 03/14/2023 CLINICAL INDICATION:Male, 74 years old with history of C64.1 MALIGNANT NEOPLASM OF RIGHT KIDNEY; Kiana gnant neoplasm of rt kidney. TECHNIQUE: Multiphase CT of the abdomen before and after the uneventful administration of 80 cc of I sovue-370 intravenously. Oral contrast was administered. Coronal and sagittal reformats were performe d. FINDINGS: LOWER CHEST: Unremarkable ABDOMEN LIVER: Unremarkable GALLBLADDER AND BILE DUCTS: The gallbladder is surgically absent. No biliary duct dilatation. PANCREAS: Unremarkable. SPLEEN: Unremarkable. ADRENAL GLANDS: Unremarkable. KIDNEYS AND URETERS: Posttreatment changes to the right kidney with cortical scarring and thinning wi th suture in place. Fat stranding changes around the right kidney. No suspicious renal lesions are id entified. Nonobstructive punctate right lower pole renal calculus. No evidence of obstructive uropath y or hydronephrosis bilaterally. Left kidney is without suspicious mass. Stable nonobstructive left r enal 4 mm calculus. Contrast is demonstrated within both collecting systems on the delayed phase. STOMACH AND BOWEL: Small hiatal hernia. No focal bowel wall thickening or surrounding inflammatory ch anges. Enteric contrast reaches the mid small bowel. The appendix is within normal limits. Sigmoid di verticulosis. No evidence of bowel obstruction. PERITONEUM/RETROPERITONEUM: No evidence of pneumoperitoneum or free fluid. VASCULATURE: No evidence of aortic aneurysm. Mild atherosclerosis of the arterial vasculature. MUSCULOSKELETAL: No acute osseous abnormalities LYMPH NODES: No evidence for lymphadenopathy. SOFT TISSUE/ABDOMINAL WALL: Unremarkable IMPRESSION: 1. Similar post surgical changes from partial right nephrectomy. No evidence for recurrent or metast atic disease within the abdomen. 2. Nonobstructive bilateral renal calculi. [facility], , 09/11/2024 3:10 PM
== END | disposition home or self-care (01) ==
LOC: RADCTMAIN 13:40
PROVIDERS: ATTEND Urology
CPT/HCPCS: 36415; 71046; 74170; 82565; 84520

== ENCOUNTER → 2025-06-10 | Outpatient (CLI) | payer MEDICARE, BC ==
--- NOTE | 2025-06-10 12:49 | XR ---
EXAMINATION TYPE: XR chest 2V DATE OF EXAM: 06/10/2025 12:15 PM COMPARISON: Chest radiographs from 09/11/2024. CLINICAL INDICATION: Male, 75 years old with history of C64.1 renal ca; [facility] TECHNIQUE: XR chest 2V Frontal and lateral views of the chest. FINDINGS: Lungs/Pleura: There is no evidence of pleural effusion, focal consolidation, or pneumothorax. Pulmonary vascularity: Unremarkable. Heart/mediastinum: Cardiomediastinal silhouette is unremarkable. Musculoskeletal: No acute osseous pathology. IMPRESSION: No acute cardiopulmonary disease/process. [facility], , 06/10/2025 12:47 PM
[2025-06-10 12:51] LABS: African American GFR (CKD) 56 (>60 ml/min/1.73 sqM); Blood Urea Nitrogen 27 mg/dL (9-20); Non-African American GFR(CKD) 49 (>60 ml/min/1.73 sqM)
--- NOTE | 2025-06-10 13:45 | CT ---
EXAMINATION TYPE: CT abdomen wo/w con DATE OF EXAM: 06/10/2025 COMPARISON: 09/11/2024 CLINICAL INDICATION: Male, 75 years old with history of C64.1 renal ca; [facility], f/u renal ca TECHNIQUE: Performed with Oral Contrast and without and with IV Contrast, patient injected with 80ml mL of Isovu e 300. CT DLP: 1186.[address] CTDI: mGy Automated exposure control for dose reduction was used. FINDINGS: The lung bases are clear. There is surgical absence of the gallbladder. There is no biliary ductal dilatation. There is no focal mass or organomegaly involving the liver, pancreas, spleen or adrenal glands. There is partial right nephrectomy. There is no solid renal mass or hydronephrosis. There is a nonobs tructing punctate calcification right kidney and a nonobstructing 6 mm calcification left kidney. The caliber the abdominal aorta is normal is no retroperitoneal adenopathy or hemorrhage. The bowel loops are normal in caliber and there is no evidence of dilatation or obstruction. No infla mmatory changes are identified in the bowel wall or mesentery. There is no free intraperitoneal air or fluid.. The osseous structures and soft tissues are intact. IMPRESSION: 1. No evidence of recurrent or metastatic disease. 2. Postsurgical changes of the right kidney. 3. Single nonobstructing bilateral renal calcifications as described above. [facility], , 06/10/2025 1:43 PM
== END | disposition home or self-care (01) ==
LOC: RADCTMAIN 11:40
PROVIDERS: ATTEND Urology
DX: C64.1 Malignant neoplasm of right kidney, except renal pelvis (principal); N28.89 Other specified disorders of kidney and ureter; Z85.528 Personal history of other malignant neoplasm of kidney; Z98.890 Other specified postprocedural states
CPT/HCPCS: 82565; 84520; 71046; 74170; 36415; Q9967